=== PATIENT | male | born 1950 | race Caucasian/White ===

== ENCOUNTER 2016-09-23 10:46 | Emergency (ER) | payer SELFPAY ==
[~2016-09-23] VITALS: Ht 167.6 cm; Wt 105.0 kg
[2016-09-23] MEDS ORDERED: TRAZ-129 PO (10:53)
[2016-09-23] MEDS ORDERED: BUPR100T6 PO (10:53)
[2016-09-23] MEDS ORDERED: KETOROLAC 60MG/2ML VIAL IM ONE (11:45)
[2016-09-23 12:54] VITALS: BP 105/49
== END 2016-09-23 13:27 | disposition home or self-care (01) ==
LOC: ER 10:47
DX: S22.32XA Fracture of one rib, left side, initial encounter for closed fracture (principal); F10.10 Alcohol abuse, uncomplicated; F17.200 Nicotine dependence, unspecified, uncomplicated; E11.9 Type 2 diabetes mellitus without complications; F32.9 Major depressive disorder, single episode, unspecified; W01.0XXA Fall on same level from slipping, tripping and stumbling without subsequent striking against object, initial encounter; Y93.89 Activity, other specified; Y92.89 Other specified places as the place of occurrence of the external cause; Y99.8 Other external cause status
CPT/HCPCS: 71101; 82962; 96372; 99284; J1885

== ENCOUNTER 2016-11-27 08:20 | Emergency (ER) | payer OTHER ==
[~2016-11-27] VITALS: Ht 177.8 cm; Wt 104.1 kg
[~2016-11-27 08:20] MED LIST: BUPR100T6 PO; TRAZ-129 PO
[2016-11-27] MEDS ORDERED: KETOROLAC 60MG/2ML VIAL IM ONE (10:45)
[2016-11-27 12:05] VITALS: BP 114/90
== END 2016-11-27 13:26 | disposition home or self-care (01) ==
LOC: ER 09:27
DX: S82.431A Displaced oblique fracture of shaft of right fibula, initial encounter for closed fracture (principal); S82.831A Other fracture of upper and lower end of right fibula, initial encounter for closed fracture; S92.321A Displaced fracture of second metatarsal bone, right foot, initial encounter for closed fracture; S92.331A Displaced fracture of third metatarsal bone, right foot, initial encounter for closed fracture; I50.9 Heart failure, unspecified; E78.00 Pure hypercholesterolemia, unspecified; E11.9 Type 2 diabetes mellitus without complications; I25.10 Atherosclerotic heart disease of native coronary artery without angina pectoris; X58.XXXA Exposure to other specified factors, initial encounter; Y93.89 Activity, other specified; Y92.89 Other specified places as the place of occurrence of the external cause; Y99.8 Other external cause status
CPT/HCPCS: 29515; 73600; 73620; 96372; 99284; J1885; Z7610